=== PATIENT | male | born 1965 | race African-American/Black ===

== ENCOUNTER 2017-07-31 13:33 | Emergency (ER) | payer MEDICAID ==
[~2017-07-31] VITALS: Ht 172.7 cm; Wt 85.0 kg
[2017-07-31] MEDS ORDERED: PHEN100C4 PO (13:37)
[2017-07-31] MEDS ORDERED: SODIUM CHLORIDE 0.9% 1,000 ML IV ONE (14:47)
[2017-07-31] MEDS ORDERED: LEVETIRACETAM 500MG TABLET PO ONE (15:00)
[2017-07-31 15:46] LABS: HEMATOCRIT. 40.4 % (42.0-52.0); HEMOGLOBIN. 13.5 g/dL (14.0-18.0); MEAN CORPUSCULAR HEMOGLOBIN 31.2 pg (28.0-32.0); MEAN CORPUSCULAR VOLUME 92.9 fL (80.0-94.0); MEAN PLATELET VOLUME 6.8 fl (7.4-10.4); PLATELET 264 x1000/uL (130-400); RED BLOOD CELL COUNT 4.35 mill/uL (4.7-6.1); RED CELL DISTRIBUTION WIDTH 14.9 % (11.6-14.6)
[2017-07-31 15:51] LABS: CHLORIDE 104 mEq/L (98-107)
[2017-07-31 15:55] LABS: ETHANOL BLOOD < 10 mg/dL
[2017-07-31 16:01] LABS: CREATINE KINASE 538 IU/L (39-308)
[2017-07-31 16:07] LABS: CARBAMAZEPINE < 0.5 ug/mL (4-12); PHENOBARBITAL < 2.1 ug/mL (15.0-40.0); VALPROIC ACID < 3.0 ug/mL (50-100)
[2017-07-31 16:13] VITALS: BP 142/94
[2017-07-31 18:02] LABS: PLATELET ESTIMATE NORMAL
== END 2017-07-31 16:54 | disposition home or self-care (01) ==
LOC: ER 14:38
DX: R56.9 Unspecified convulsions (principal); R53.1 Weakness
CPT/HCPCS: 36415; 80053; 80156; 80165; 80184; 80185; 82550; 84443; 84484; 85025; 93005; 96360; 99285; G0482; J7030